=== PATIENT | male | born 1995 | race Caucasian/White ===

== ENCOUNTER 2025-07-08 01:20 | Emergency (ER) | payer OTHER ==
[~2025-07-08] VITALS: Ht 177.8 cm; Wt 79.0 kg
[2025-07-08 01:48] LABS: BASOPHILS 0.2 % (0.2-1.2); EOSINOPHILS 0.2 % (0.8-7.0); LYMPHOCYTES 9.3 % (21.8-53.1); MCH 29.1 PG (25.7-32.2); MCHC 34.0 g/dL (32.3-36.5); MCV 85.7 fL (79.0-92.2); MONOCYTES 1.9 % (5.3-12.2); NEUTROPHILS 88.0 % (34.0-67.9); RBC 4.40 M/uL (4.63-6.08)
[2025-07-08 02:03] LABS: ALCOHOL, MEDICAL <3 ng/dL (<3); ALT (SGPT) 89 U/L (14-59); AST (SGOT) 105 U/L (15-37); GLOMERULAR FILTRATION RATE,EST 52 mL/min (>60); PROTEIN, TOTAL 7.2 g/dL (6.4-8.2); UREA NITROGEN 19 mg/dL (7-18)
[2025-07-08 02:29] LABS: AMPHETAMINES, URINE POSITIVE (NEGATIVE); BARBITURATES, URINE NEGATIVE (NEGATIVE); BENZODIAZEPINE, URINE NEGATIVE (NEGATIVE); CANNABINOID, URINE NEGATIVE (NEGATIVE); COCAINE, URINE NEGATIVE (NEGATIVE); ECSTASY, URINE NEGATIVE (NEGATIVE); FENTANYL, URINE POSITIVE (NEGATIVE); METHADONE, URINE NEGATIVE (NEGATIVE); OPIATES, URINE NEGATIVE (NEGATIVE); OXYCODONE, URINE NEGATIVE (NEGATIVE); PHENCYCLIDINE, URINE NEGATIVE (NEGATIVE)
[2025-07-08] MEDS ORDERED: NALOXONE 4 MG NASAL SPRAY #2 HOME.PACK NAS ONE (02:30)
[2025-07-08 03:25] VITALS: BP 117/77
== END 2025-07-08 03:25 | disposition home or self-care (01) ==
LOC: ED 01:20
PROVIDERS: Family Medicine
DX: T40.411A Poisoning by fentanyl or fentanyl analogs, accidental (unintentional), initial encounter (principal); T43.621A Poisoning by amphetamines, accidental (unintentional), initial encounter; R40.4 Transient alteration of awareness
CPT/HCPCS: 36415; 80053; 80307; 83735; 85025; 99284; G0480; J3490